=== PATIENT | male | born 1980 | race Asian ===

== ENCOUNTER 2018-04-03 08:36 | Emergency (ER) | payer OTHER ==
[2018-04-03 08:49] VITALS: BP 118/79
[2018-04-03] MEDS ORDERED: DEXAMETHASONE 10 MG/ML VIAL PO STA (11:30)
--- NOTE | 2018-04-03 11:43 | ED Physician Documentation ---
PD HPI BACK PAIN - Stated complaint Stated Complaint: PX DOWN RT SIDE - Chief complaint Chief Complaint: Back Pain - History obtained from History obtained from: Patient - History of Present Illness Timing - onset: How many weeks ago (1) Timing - duration: Weeks (1) Timing - details: Abrupt onset, Still present Location: Lower, Right Quality: Pain, Spasm, Sharp, Similar to prior episodes Associated symptoms: No: Fever, Weakness, Numbness, Incontinent of urine, Unable to urinate, Hematuria, Incontinent of stool Improves with: Rest, Ice, Position Worsened by: Movement, Lifting Similar symptoms before: Diagnosis (sciatica) Recently seen: Clinic - Additional information Additional information: 37-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 He has developed pain radiating down the right leg and his right leg has given out on him 3 times in the past 4 days. He has been into see his primary and x-rays of the back were obtained. He has been given a note for work for 2 weeks. He states that he has had pain in his back for 11 years and has never sought medical attention for this. This is much worse and much more isolated than he has had previously and he has never had his leg give out on him. He denies any saddle anesthesia he denies any incontinence of bowel or bladder. Review of Systems Constitutional: denies: Fever Eyes: denies: Decreased vision Ears: denies: Ear pain Nose: denies: Congestion Throat: denies: Sore throat Respiratory: denies: Cough GI: denies: Abdominal Pain, Nausea, Vomiting, Constipation, Diarrhea : denies: Dysuria, Frequency Skin: denies: Rash Musculoskeletal: reports: Back pain, Extremity pain. denies: Neck pain Neurologic: reports: Focal weakness (right leg "gives out"). denies: Generalized weakness, Numbness PD PAST MEDICAL HISTORY - Present Medications Home Medications: Ambulatory Orders Medication Instructions Recorded Confirmed Cyclobenzaprine [Flexeril] 10 mg PO TID PRN #20 tablet 04/03/18 HYDROcod/ACETAM 5/325 [[place] 5/325] 1 - 2 ea PO Q6H PRN #15 tablet 04/03/18 Ibuprofen 600 mg PO DAILY 04/03/18 04/03/18 - Allergies Allergies/Adverse Reactions: Allergies Allergy/AdvReac Type Severity Reaction Status Date / Time No Known Drug Allergies Allergy Verified 04/03/18 08:49 PD ED PE NORMAL - Vitals Vital signs reviewed: Yes (normal ) - General General: Alert and oriented X 3, No acute distress, Well developed/nourished - HEENT HEENT: Atraumatic, PERRL, EOMI - Respiratory Respiratory: No respiratory distress - Derm Derm: Normal color, Warm and dry, No rash - Extremities Extremities: No deformity, No edema, Other (no reduction in dorsiflexion of the right foot) - Neuro Neuro: Alert and oriented X 3, stockfeed miller 2-12 intact, No motor deficit, No sensory deficit, Normal speech Eye Opening: Spontaneous Motor: Obeys Commands Verbal: Oriented GCS Score: 15 - Psych Psych: Normal mood, Normal affect Results - Vitals Vitals: Vital Signs - 24 hr 04/03/18 08:46 Temperature 36.6 C Heart Rate 86 Respiratory 18 Rate Blood Pressure 118/79 O2 Saturation 100 Oxygen O2 Source Room air PD MEDICAL DECISION MAKING - ED course Complexity details: considered differential, d/w patient ED course: 37-year-old previously healthy male with chronic back pain has acute sciatica on the right side. His leg is giving out on him. Here in the emergency department he is administered dexamethasone 10 mg orally and we will place him on some pain medication and muscle relaxant. He has a note for work for 2 weeks. I have instructed the patient that he will need to do ice and stretch and avoid using he packed and that he will eventually need to have physical therapy in order to avoid surgery or epidural steroid injections. He has not had MRI as yet. - Sepsis Event Vital Signs: Vital Signs - 24 hr 04/03/18 08:46 Temperature 36.6 C Heart Rate 86 Respiratory 18 Rate Blood Pressure 118/79 O2 Saturation 100 Oxygen O2 Source Room air Departure - Departure Disposition: 01 Home, Self Care Clinical Impression: Sciatica Qualifiers: Laterality: right Qualified Code(s): M54.31 - Sciatica, right side Condition: Stable Instructions: ED Sciatica Follow-Up: ROBERTO MEAD [Primary Care Provider] - Prescriptions: Cyclobenzaprine [Flexeril] 10 mg PO TID PRN #20 tablet PRN Reason: Spasms HYDROcod/ACETAM 5/325 [[place] 5/325] 1 - 2 ea PO Q6H PRN #15 tablet PRN Reason: Pain
== END 2018-04-03 11:47 | disposition home or self-care (01) ==
LOC: ED 08:36
DX: M54.31 Sciatica, right side (principal)
CPT/HCPCS: 99283

== ENCOUNTER 2018-04-08 17:14 | Emergency (ER) | payer OTHER ==
--- NOTE | 2018-04-08 19:45 | ED Physician Documentation ---
PD HPI BACK PAIN - Stated complaint Stated Complaint: LOW BACK PAIN - Chief complaint Chief Complaint: Back Pain - History obtained from History obtained from: Patient - History of Present Illness Location: Lower, Right (radiating down anterior right leg to knee.) Quality: Pain, Spasm Associated symptoms: No: Fever, Weakness, Numbness Improves with: Rest Worsened by: Movement, Lifting, Twisting. No: Palpation Contributing factors: Lifting, Twisting. No: Anticoagulated Recently seen: Clinic (Rx with FLexeril and Hydrocodone, which he says he is not using much as makes him too sleepy, so mainly using at night.) Review of Systems Constitutional: denies: Fever, Chills, Myalgias : denies: Incontinent Skin: denies: Rash, Lesions Musculoskeletal: reports: Back pain. denies: Neck pain Neurologic: denies: Focal weakness, Numbness PD PAST MEDICAL HISTORY - Past Medical History Past Medical History: No - Past Surgical History Past Surgical History: No - Present Medications Home Medications: Ambulatory Orders Medication Instructions Recorded Confirmed Cyclobenzaprine [Flexeril] 10 mg PO TID PRN #20 tablet 04/03/18 HYDROcod/ACETAM 5/325 [[place] 5/325] 1 - 2 ea PO Q6H PRN #15 tablet 04/03/18 Ibuprofen 600 mg PO DAILY 04/03/18 04/03/18 Dexamethasone [Decadron] 4 mg PO DAILY #7 tablet 04/08/18 Methocarbamol [Robaxin] 500 mg PO Q6H PRN #25 tablet 04/08/18 Naproxen 375 mg PO BID #20 tablet 04/08/18 Tramadol HCl 50 mg PO Q6H PRN #20 tablet 04/08/18 - Allergies Allergies/Adverse Reactions: Allergies Allergy/AdvReac Type Severity Reaction Status Date / Time No Known Drug Allergies Allergy Verified 04/08/18 17:18 - Social History Does the pt smoke?: No Smoking Status: Never smoker Does the pt drink ETOH?: Yes Does the pt have substance abuse?: No - Immunizations Immunizations are current?: Yes - POLST Patient has POLST: No PD ED PE NORMAL - Vitals Vital signs reviewed: Yes - General General: Alert and oriented X 3, No acute distress (but does seem guarded for ROM of the right low back. ), Well developed/nourished - Cardiac Cardiac: RRR, No murmur - Respiratory Respiratory: Clear bilaterally - Abdomen Abdomen: Soft, Non tender - Male Male : Deferred - Rectal Rectal: Deferred - Back Back: No CVA TTP, No spinal TTP (tender right low back in muscles area. Did not see skin in area but he denies rash. ) - Derm Derm: Normal color, Warm and dry - Neuro Neuro: Alert and oriented X 3, No motor deficit, No sensory deficit, Normal speech, Other (normal patellar reflexes) Results - Vitals Vitals: Oxygen O2 Source Room air PD MEDICAL DECISION MAKING - ED course Complexity details: considered differential, d/w patient - Sepsis Event Vital Signs: Oxygen O2 Source Room air Departure - Departure Disposition: Home, Self Care Clinical Impression: Lumbar pain with radiation down right leg Condition: Stable Record reviewed to determine appropriate education?: Yes Instructions: ED Sciatica Follow-Up: ROBERTO MEAD [Primary Care Provider] - Prescriptions: Dexamethasone [Decadron] 4 mg PO DAILY #7 tablet Methocarbamol [Robaxin] 500 mg PO Q6H PRN #25 tablet PRN Reason: Spasms Naproxen 375 mg PO BID #20 tablet Tramadol HCl 50 mg PO Q6H PRN #20 tablet PRN Reason: Pain Comments: Heat and gentle stretching for the low back. Initiate physical therapy as planned. I would suggest some anti-inflammatories such as naproxen twice daily. Also use Decadron steroid anti-inflammatory daily for the next week. He can use a muscle relaxant Robaxin which is not quite as strong as the Flexeril so will make you not quite as sleepy and side effects. You can also continue the hydrocodone as needed for pain or use tramadol which is not quite as strong to again minimize side effects from it. Follow-up with your primary care in about a week, call for an appointment. Discharge Date/Time: 04/08/18 20:26
[2018-04-08 20:25] VITALS: BP 122/84
== END 2018-04-08 20:26 | disposition home or self-care (01) ==
LOC: ED 17:14
DX: M54.5 Low back pain (principal); M79.661 Pain in right lower leg
CPT/HCPCS: 99283

== ENCOUNTER 2021-04-26 08:39 | Outpatient (CLI) | payer OTHER ==
[2021-04-26 09:15] VITALS: BP 108/72
--- NOTE | 2021-04-26 09:15 | SLEEP CARE CONSULTATION ---
Information from patient questionnaire entered by Kaelyn Foster. I have reviewed and concur with the information entered by Kaelyn Foster. This document represents the service I personally performed and the decisions made by me, Ruma Zarate ARNP. History of Present Illness Service Date and Time: 04/26/2021 0839 Reason for Visit: New patient Chief Complaint: reports: Unrefreshed sleep, Snoring, Observed pauses in breathing Date of Onset: 3 years Usual bedtime: rotates Time it takes to fall asleep: 5-10 minutes Snores at night: Yes Observed to quit breathing while asleep: Yes Sleeps alone due to snoring: Yes Number of times waking at night: 2-3 Reasons for waking at night: reports: Snoring (not too often), Other (unknown reason) Toss, Turn, or Twitch while sleeping: Yes Recalls having dreams: Yes Usually gets out of bed at: rotates Feels refreshed in the morning: No Morning headache: No Sleepy or fatigued during the day: Yes Ever fallen asleep while driving: No Takes day naps: No Dreams during day naps: Yes Prior sleep studies: No Additional HPI information: I had the pleasure of seeing CLIFTON HUDSON today regarding the possibility of him having a sleep disorder. His current complaints are unrefreshed sleep, snoring and observed pauses in breathing. He has come in because his is waking him up due to him making sounds and stopping breathing. He has a rotating schedule for work. He will work days for 5 days, have 96 hours to transition, then work afternoon shift for 5 days. 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 His has told him that in the last 3 years he has been snoring and he is making gasping sounds when he is sleeping. He is not getting good sleep and does not feel rested in the morning. He denies morning headaches. He has a restlessness in his legs normally all day. He basically lives on coffee, drinking 1 pot of coffee while at work, plus a few cups. He will then drink about another half pot of coffee after work. He also drinks a couple of caffeine sodas daily. - Parasomnia Symptoms Ever been unable to move upon waking from sleep: No Walks in sleep: No Talks in sleep: No Ever acted out dreams in sleep: No Ever felt weak in the knees when startled or emotional: No Bothered by creepy, crawly, restless sensations in legs: Yes (all day) Problems with memory or concentration: No Subjective Initial [place] Sleepiness Scale score: 7 (in 2020) Past Medical History Past Medical History: reports: Other (back issues) Social History The patient's occupation is a [employer]. Patient is and lives in [place]. Have you smoked in the past 12 months: Yes Cigarettes per day (20/pack): 20 Years of smokin Smoking Pack Years: 22.0 Alcohol use: Yes Alcohol amount and frequency: 1-3 drinks, less than once a week Caffeine use: Yes Caffeine amount and frequency: 1-2 drinks soda; 1 pot coffee at work, another half pot at night Family History Family history of sleep disordered breathing: No Allergies and Home Medications Drug allergies reviewed: Yes (NKDA) Home medication list reviewed: Yes Allergy and home medication list: Flexeril, prn Review of Systems Cardiovascular: denies: high blood pressure Respiratory: reports: sputum production Gastrointestinal: denies: heartburn Neurological: denies: headaches Psychiatric: denies: anxiety, depression Ear/Nose/Throat: reports: wisdom teeth removed. denies: injury to nose, tonsillectomy Endocrine: reports: sluggishness, too hot or cold Musculoskeletal: reports: back pain Physical Exam Blood Pressure: 108/72 Cuff size: wrist Heart Rate: 84 O2 Saturation: 98 Height: 6 ft 1 in Weight: 221 lb Body Mass Index: 29.1 BMI Classification: Overweight Neck circumference: 14.8 (inches) Nostrils: patent to airflow Mouth and throat: narrow oropharynx Soft palate: long Hard palate: normal Uvula: normal Uvula visualization: 50% Mallampati Class II Tongue: enlarged in size with teeth sherman on lateral edges Tonsils: small Neck: normal w/o lymphadenopathy or thyromegaly Heart: regular rate and rhythm Lungs: clear bilaterally Impression and Plan 1. Suspected Obstructive Sleep Apnea-Hypopnea Syndrome, as suggested by a hist ory of loud and irregular snoring, observed cessation of breath while asleep, gasping or choking in sleep, and unrefreshed sleep. Narrow oropharynx and obesity are common predisposing factors for obstructive sleep apnea-hypopnea syndrome. I recommend proceeding to polysomnography to confirm the diagnosis and to assess severity. If the patient has significant sleep disordered breathing, a manual CPAP titration study will also be performed to find the optimal treatment pressure. I informed the patient of what the sleep studies involve and after some discussion, obtained agreement to proceed. The pathophysiology of obstructive sleep apnea-hypopnea syndrome was discussed with the patient and health risks of cardiovascular and cerebrovascular disease if not treated. [facility] brochure for obstructive sleep apnea-hypopnea syndrome given and reviewed. Risks of drowsy driving discussed in detail and patient advised to avoid long distance driving and to slab puller at the first sign of drowsiness. Patient agreed to plan. * Schedule polysomnography +- manual CPAP titration study and return in 1-2 weeks after the study to discuss result and initiate therapy. * Avoid long distance driving or driving when feeling sleepy. * Avoid alcohol, sedative and muscle relaxant around bedtime. * Attempt to lose weight. * Review instructions provided by trained office staff on how to prepare for the sleep study. * Return for follow-up after sleep study completed. Counseling Topics: Weight loss health impact Visit Type: In Office Time Spent with Patient (minutes): 31 Provider Statement: I spent 100% of the Face to Face Visit with the patient with greater than 50% spent counseling the patient and coordination of care.
== END 2021-04-26 08:40 | disposition home or self-care (01) ==
LOC: SC 08:39
PROVIDERS: ATTEND Nurse Practitioner Family
DX: R06.81 Apnea, not elsewhere classified (principal); R06.83 Snoring; G47.8 Other sleep disorders; F17.210 Nicotine dependence, cigarettes, uncomplicated
CPT/HCPCS: 99203; 99212

== ENCOUNTER 2021-05-04 08:58 | Outpatient (CLI) | payer OTHER | END 2021-05-04 08:59 | disposition home or self-care (01) | LOC: SC 08:58 | PROVIDERS: ATTEND Nurse Practitioner Family | DX: R06.83 Snoring (principal); R06.81 Apnea, not elsewhere classified; G47.8 Other sleep disorders; F17.210 Nicotine dependence, cigarettes, uncomplicated | CPT/HCPCS: 95806 ==